=== PATIENT | male | born 1995 | race Caucasian/White ===

== ENCOUNTER 2023-11-08 14:52 | Outpatient (CLI) | payer BC ==
[2023-11-08 15:42] LABS: Anion Gap 12 mmol/L (10-20); BUN (Urea Nitrogen) 15 mg/dL (8.9-20.6); Calc. Creatinine Clearance 0 mL/min (70-130); Calcium 9.3 mg/dL (7.8-10.44); Carbon Dioxide 25 mmol/L (22-29); Chloride 107 mmol/L (98-107); Estimated GFR 106; Glucose 107 mg/dL (70-105); Potassium 3.8 mmol/L (3.5-5.1); Sodium 140 mmol/L (136-145)
[2023-11-08 15:48] LABS: #Basophils 0.04 10x3/uL (0.0-0.2); #Eosinphils 0.43 10x3/uL (0.0-0.5); #Monocytes 0.46 10x3/uL (0.0-1.1); #Neutrophils 3.34 10x3/uL (1.5-8.4); %Basophils 0.6 % (0.0-2.0); %Eosinophils 6.6 % (0.0-6.0); %Lymphocytes 34.6 % (18.0-47.0); Hematocrit 38.2 % (38.8-50.0); Hemoglobin 13.2 g/dL (13.5-17.5); Mean Corpuscular HGB CONC 34.6 g/dL (32.0-36.0); Mean Corpuscular Hemoglobin 29.3 pg (27.0-33.0); Mean Corpuscular Volume 84.9 fL (81.2-95.1); Platelet Count 250 10x3/uL (150-450); RBC Distribution Width 12.5 % (11.5-14.5); White Blood Cell (WBC) Count 6.5 10x3/uL (3.5-10.5)
== END 2023-11-08 14:53 | disposition home or self-care (01) ==
LOC: CSHLAB 14:52
PROVIDERS: ATTEND Specialist
DX: Z01.812 Encounter for preprocedural laboratory examination (principal); K40.90 Unilateral inguinal hernia, without obstruction or gangrene, not specified as recurrent; K42.9 Umbilical hernia without obstruction or gangrene
CPT/HCPCS: 80048; 85025

== ENCOUNTER 2023-11-11 08:09 | Day surgery (SDC) | payer BC ==
[2023-11-08 15:12] VITALS: BMI 21.7
[2023-11-11] MEDS ORDERED: Acetaminophen 500 MG TAB ONE (08:51)
[2023-11-11] MEDS ORDERED: Ketorolac Tromethamine 30 MG (1 mL) VIAL ONE (08:51)
[2023-11-11] MEDS ORDERED: Bupivacaine/Epinephrine 0.25% 30 ML VIAL ONE (11:42)
[2023-11-11] MEDS ORDERED: Lidocaine 1% PF 5 ML VIAL ONE (11:46)
[2023-11-11] MEDS ORDERED: Dexamethasone 4 mg/ml Vial ONE (11:46)
[2023-11-11] MEDS ORDERED: Ondansetron PF 4 MG/2 ML Vial ONE (11:46)
[2023-11-11] MEDS ORDERED: Midazolam HCl 2 mg/2 ml Vial ONE (11:46)
[2023-11-11] MEDS ORDERED: PROPOFOL 20 ML ONE (11:46)
[2023-11-11] MEDS ORDERED: Fentanyl 250 MCG/5 ML VIAL ONE (11:46)
[2023-11-11] MEDS ORDERED: Rocuronium Bromide 10 MG/ML (10ML VIAL) ONE (11:47)
[2023-11-11] MEDS ORDERED: CEFAZOLIN 2 GM VIAL ONE (11:49)
[2023-11-11] MEDS ORDERED: SUGAMMADEX SODIUM 200 MG/2 ML VIAL ONE ×2 (12:59→13:01)
== END 2023-11-11 15:10 | disposition home or self-care (01) ==
LOC: CSHSDC 08:09
PROVIDERS: ATTEND Specialist
PROC: 0WUF0JZ Supplement Abdominal Wall with Synthetic Substitute, Open Approach (ICD-10-PCS; principal; 2023-11-11)
PROC: 0YU54JZ Supplement Right Inguinal Region with Synthetic Substitute, Percutaneous Endoscopic Approach (ICD-10-PCS; principal; 2023-11-11)
DX: K40.90 Unilateral inguinal hernia, without obstruction or gangrene, not specified as recurrent (principal); K42.9 Umbilical hernia without obstruction or gangrene; Z98.890 Other specified postprocedural states; Z79.899 Other long term (current) drug therapy
CPT/HCPCS: A6258; C1781; J1100; J1885; J2250; J2405; J2704; J3010

== ENCOUNTER 2024-01-01 01:44 | Emergency (ER) | payer BC ==
[2024-01-01 02:41] LABS: Bilirubin Neg (Negative); Blood, Urine Negative (Negative); Clarity Clear (Clear); Glucose, Urine (Dipstick) Normal (Negative); Ketone, Urine Negative (Negative); Leukocyte Negative (Negative); Nitrite Negative (Negative); Protein, Urine (Dipstick) 15 mg/dl (Neg-Trace); Specific Gravity, Urine 1.025 (1.005-1.030); Urobilinogen Normal mg/dL (Less than 2)
[2024-01-01 02:42] LABS: #Basophils 0.02 10x3/uL (0.0-0.2); #Eosinophils 0.14 10x3/uL (0.0-0.5); #Monocytes 0.47 10x3/uL (0.0-1.1); #Neutrophils 9.38 10x3/uL (1.5-8.4); %Basophils 0.2 % (0.0-2.0); %Eosinophils 1.2 % (0.0-6.0); %Lymphocytes 11.6 % (18.0-47.0); %Monocytes 4.1 % (0.0-10.0); %Neutrophils 82.6 % (40.0-75.0); Hematocrit 40.5 % (38.8-50.0); Hemoglobin 13.6 g/dL (13.5-17.5); Mean Corpuscular HGB CONC 33.6 g/dL (32.0-36.0); Mean Corpuscular Hemoglobin 29.3 pg (27.0-33.0); Mean Corpuscular Volume 87.3 fL (81.2-95.1); Mean Platelet Volume 10.2 fL (7.4-10.4); Platelet Count 290 10x3/uL (150-450); RBC Distribution Width 12.4 % (11.5-14.5); Red Blood Cell (RBC) Count 4.64 10x6/uL (4.32-5.72); White Blood Cell (WBC) Count 11.4 10x3/uL (3.5-10.5)
[2024-01-01 02:52] LABS: CAUTI Indications for Culture Pelvic or flank pain; RBC/HPF 0-3 HPF (0-3); WBC/HPF 0-3 HPF (0-3)
[2024-01-01 02:53] LABS: Bacteria/HPF Rare-Few HPF (None Seen); Mucous/LPF 1+ LPF (<2+); Squamous Epithelial None Seen HPF (0-3)
[2024-01-01 02:54] LABS: Urine Culture Reflex No No
[2024-01-01 02:57] LABS: ALT (SGPT) 43 U/L (8-55); AST (SGOT) 21 U/L (5-34); Albumin 4.4 g/dL (3.5-5.0); Alkaline Phosphatase 86 U/L (40-110); Anion Gap 12 mmol/L (10-20); BUN (Urea Nitrogen) 23 mg/dL (8.9-20.6); Bilirubin, Total 0.4 mg/dL (0.2-1.2); Calc. Creatinine Clearance 0 mL/min (70-130); Calcium 9.7 mg/dL (7.8-10.44); Carbon Dioxide 24 mmol/L (22-29); Chloride 108 mmol/L (98-107); Estimated GFR 113; Globulin 2.9 g/dL (2.4-3.5); Glucose 146 mg/dL (70-105); Lipase 42 U/L (8-78); Potassium 3.9 mmol/L (3.5-5.1); Protein, Total 7.3 g/dL (6.0-8.3); Sodium 140 mmol/L (136-145)
[2024-01-01] MEDS ORDERED: Ondansetron PF 4 MG/2 ML Vial ONE (03:03)
[2024-01-01] MEDS ORDERED: Ketorolac Tromethamine 30 MG (1 mL) VIAL ONE (03:03)
[2024-01-01] MEDS ORDERED: Iopamidol 300 61% 100 ML VIAL FS ONE (14:35)
== END 2024-01-01 04:26 | disposition home or self-care (01) ==
LOC: CSHERS 01:44
DX: A08.4 Viral intestinal infection, unspecified (principal)
CPT/HCPCS: 36415; 74177; 80053; 81001; 83605; 83690; 85025; 96374; 96375; J1885; J2405; Q9967